=== PATIENT | male | born 1955 | race Caucasian/White ===

== ENCOUNTER 2016-07-20 14:51 | Inpatient (IN) | payer OTHER ==
[~2016-07-20] VITALS: Ht 185.4 cm; Wt 86.6 kg
[2016-07-20 16:36] LABS: HEMATOCRIT 41.4 % (38.0-50.0); MCH 30.8 PG (29.0-34.0); MCHC 32.9 G/DL (30.0-36.0); MCV 93.7 FL (86-99); MEAN PLAT.VOLUME 9.1 uM^3 (9.0-12.4); PLATELET COUNT 262 K/uL (156-360); RBC DIS.WIDTH-CV 12.6 % (11.8-14.6); RBC DIS.WIDTH-SD 43.5 % (39-53); RED BLOOD COUNT 4.42 M/uL (4.00-5.50); WHITE BLOOD COUNT 12.5 K/uL (4.1-10.2)
[2016-07-20 16:50] LABS: INTER. NORMALIZED RATIO 1.1; PTT 25.2 (25-32)
[2016-07-20 16:56] LABS: CHLORIDE 103 mEq/L (99-109); SODIUM 138 mEq/L (136-147)
[2016-07-20 16:57] LABS: GLUCOSE 112 mg/dL (70-99)
[2016-07-20 16:59] LABS: ANION GAP 10 MEQ/L (2-14)
[2016-07-20 17:01] LABS: GFR ESTIMATE (CALCULATED) > 59 mL/min/
[2016-07-20 17:02] LABS: UREA NITROGEN (BUN) 16 mg/dL (9-23)
[2016-07-20] MEDS ORDERED: ATORVASTATIN CA80 MG PO (20:31)
[2016-07-20] MEDS ORDERED: FOLIC ACID1 MG PO (20:32)
[2016-07-20] MEDS ORDERED: VITAMIN B122500 MCG PO (20:35)
[2016-07-20] MEDS ORDERED: MAG-TAB SR84 MG PO (20:35)
[2016-07-20] MEDS ORDERED: VITAMIN D2000 UNIT PO (20:37)
[2016-07-20] MEDS ORDERED: PROBIOTIC250 MG PO (20:37)
[2016-07-20] MEDS ORDERED: TRAZODONE HCL50 MG PO (20:38)
[2016-07-20] MEDS ORDERED: HYDROXYZINE HCL50 MG PO (20:38)
[2016-07-20] MEDS ORDERED: ZOLOFT50 MG PO (20:40)
[2016-07-20] MEDS ORDERED: REQUIP1 MG PO (20:40)
[2016-07-20] MEDS ORDERED: LO-DOSE ASPIRIN81 M2 PO (20:40)
[2016-07-20] MEDS ORDERED: GABAPENTIN400 MG PO (20:41)
[2016-07-20] MEDS ORDERED: OXCARBAZEPINE300 MG PO (20:41)
[2016-07-20 21:38] VITALS: BP 135/72
[2016-07-20 23:23] VITALS: BP 109/69
[2016-07-21 03:33] VITALS: BP 124/78
[2016-07-21 05:29] LABS: EOSINOPHIL (%) 0.2 % (0-5); HEMATOCRIT 35.4 % (38.0-50.0); IMMATURE GRANULOCYTE (%) 0.6 % (0.0-0.7); IMMATURE GRANULOCYTE COUNT 0.1 K/uL; INSTRUMENT ABS NEUTROPHIL CT 5.9 K/uL; LYMPHOCYTE COUNT 1.5 K/uL (1.0-2.8); MCH 30.8 PG (29.0-34.0); MCHC 33.1 G/DL (30.0-36.0); MCV 93.2 FL (86-99); MEAN PLAT.VOLUME 9.2 uM^3 (9.0-12.4); MONOCYTE (%) 9.4 % (3-12); MONOCYTE COUNT 0.8 K/uL (0-0.8); NEUTROPHIL (%) 71.1 % (45-76); NEUTROPHIL COUNT 5.9 K/uL (1.8-6.4); PLATELET COUNT 219 K/uL (156-360); RBC DIS.WIDTH-CV 12.8 % (11.8-14.6); RBC DIS.WIDTH-SD 43.8 % (39-53)
[2016-07-21 05:32] LABS: WHITE BLOOD COUNT 8.3 K/uL (4.1-10.2)
[2016-07-21 05:42] LABS: ANION GAP 8 MEQ/L (2-14); CHLORIDE 104 MEQ/L (99-109); GFR ESTIMATE (CALCULATED) > 59 mL/min/; GLUCOSE 118 mg/dL (70-99); SAMPLE HEMOLYSIS CHECK 0; SAMPLE ICTERIC CHECK 0; SAMPLE LIPEMIA CHECK 0; SODIUM 137 MEQ/L (136-147); UREA NITROGEN (BUN) 15 mg/dL (9-23)
[2016-07-21 05:43] LABS: POTASSIUM 3.9 MEQ/L (3.7-5.4)
[2016-07-21 11:36] VITALS: BP 116/79
[2016-07-21 15:39] VITALS: BP 128/87
[2016-07-21 20:06] VITALS: BP 143/89
[2016-07-21 23:32] VITALS: BP 112/70
[2016-07-22 04:51] VITALS: BP 128/83
[2016-07-22 08:51] VITALS: BP 132/76
[2016-07-22 12:07] VITALS: BP 127/86
[2016-07-22 16:20] VITALS: BP 116/72
[2016-07-22 20:06] VITALS: BP 134/83
[2016-07-23] VITALS (7 sets, daily range): BP systolic 116–143; BP diastolic 60–94
[2016-07-24 03:50] VITALS: BP 134/84
[2016-07-24 08:12] VITALS: BP 129/79
[2016-07-24 11:30] VITALS: BP 121/82
[2016-07-24] MEDS ORDERED: RISPERDAL1 MG PO (23:46)
[2016-07-25 00:14] VITALS: BP 129/78
[2016-07-25 08:26] VITALS: BP 120/77
[2016-07-25 12:03] VITALS: BP 105/72
[2016-07-25] MEDS ORDERED: PERCOCET 5/31 TABLET PO (13:43)
== END 2016-07-25 16:15 | disposition home or self-care (01) | DRG 200 ==
LOC: EME → EDBD 14:51 → EME 14:51 → 3EAST 19:25 → EDOF 19:25 → 3EAST 21:21
PROVIDERS: Emergency Medicine
PROC: 0W9B30Z Drainage of Left Pleural Cavity with Drainage Device, Percutaneous Approach (ICD-10-PCS; principal; 2016-07-20)
PROC: 09C47ZZ Extirpation of Matter from Left External Auditory Canal, Via Natural or Artificial Opening (ICD-10-PCS; 2016-07-22)
DX: S27.0XXA Traumatic pneumothorax, initial encounter (principal); S22.32XA Fracture of one rib, left side, initial encounter for closed fracture; S43.102A Unspecified dislocation of left acromioclavicular joint, initial encounter; V89.2XXA Person injured in unspecified motor-vehicle accident, traffic, initial encounter; Y92.410 Unspecified street and highway as the place of occurrence of the external cause; M26.622 Arthralgia of left temporomandibular joint; H92.22 Otorrhagia, left ear; Z87.891 Personal history of nicotine dependence
CPT/HCPCS: 70450; 71010; 71020; 71260; 72125; 72129; 72132; 72170; 73030; 73060; 74177; 80048; 80048 91; 83605; 85025; 85027; 85610; 85730; 86850; 86900; 86901; 93005; 94799; 99281; 99285; J2060; J2270; J3010; J7120; Q0177